=== PATIENT | male | born 1970 | race Hispanic/Latino ===

== ENCOUNTER 2025-04-03 17:48 | Emergency (ER) | payer SELFPAY | END 2025-04-03 21:25 | LOC: NAV ERS 17:48 | DX: S01.111A Laceration without foreign body of right eyelid and periocular area, initial encounter (principal); I10 Essential (primary) hypertension; V47.5XXA Car driver injured in collision with fixed or stationary object in traffic accident, initial encounter | CPT/HCPCS: 12011; 70450; 72125 ==